=== PATIENT | male | born 1950 | race Caucasian/White ===

== ENCOUNTER → 2017-01-15 | Outpatient (CLI) | payer OTHER ==
[~2017-01-15] MED LIST: ACID CONTROL150 MG PO; ALBUTEROL17 GM INH; ALOE VESTA CLE118 ML TOP; ATORVASTATIN CA80 MG PO; ATROVENT NEB; B-121000 MC1 PO; BIOTENE MOIST44.3 ML; BUPROPION XL300 MG PO; BUSPIRONE HCL10 M1 PO; CALMOSEPTINE O3.5 GM TOP; DILTIAZEM 24HR240 M1 PO; ESCITALOPRAM OX20 MG PO; FERRO-TIME325 MG PO; FLOMAX0.4 M1 PO; GABAPENTIN600 MG PO; LASIX PO; MAG-OXIDE400 MG PO; METFORMIN HCL500 M1 PO; OXYCODONE HCL5 MG PO; STOOL SOFTENER250 MG PO; SYMBICORT 160/4.6 GM INH; TOPROL XL100 MG PO; WARFARIN SODIU7.5 M1 PO; WARFARIN SODIUM10 MG PO; ZINC OXIDE56.7 GM TOP
--- NOTE | ~2017-01-15 | CT95 ---
[facility] [place]. [facility] A Service of [facility] & [facility] RADIOLOGY TEXT RESULTS PATIENT: MUNDO ESPINAL LOCATION: [facility] : 52 UNIT #: [id number] AGE: [address]: Rey Herndon MD SEX: M ORDER DR: [id number] [address] [address] [id number] O MR#: [id number] Acc #: [id number] NAME: MUNDO ESPINAL : 1950 SEX: M STUDY DATE/TIME: 01/15/2017 12:44 UNIT: SCT ROOM: STUDY DESCRIPTION: CT Lower Ext Rt Wo Cont Attending Physician: Mervin Herndon M.D. Referring Physician: Mervin Herndon M.D. Ordering Physician: Mervin Herndon M.D. Primary Care Physician: No Primary Care Physician MEDICAL IMAGING REPORT This report is preliminary unless electronic signature is present. EXAM CT right lower leg and ankle. HISTORY 67-year-old male; fracture, November 2015. Had surgery at [facility], now with persistent pain, swelling. Patient underwent tibiotalocalcaneal fusion procedure with persistent pain. COMPARISON Foot and ankle films, 12/10/2016. TECHNIQUE Thin-section axial images were performed through the right lower leg and ankle with multiplanar reconstructed images reviewed at a work station. This CT exam was performed with one or more of the following radiation dose reduction techniques: automatic exposure control, adjustment of mA and/or kV according to patient size, and iterative reconstruction. FINDINGS Examination demonstrates a long retrograde intramedullary nail extending through the calcaneus, through the talus and into the distal and mid tibia. 2 proximal interlocking screws engage the tibial portion of the intramedullary nail, with no fracture or loosing of this instrumentation. In the distal tibia, there is considerable lucency about the intramedullary nail, which suggests abnormal motion. There is also extensive lucency within the talus, corresponding to the passage of the intramedullary nail, but considerable space surrounding the intramedullary nail and also within the calcaneus. This also implies abnormal motion and loosening and loss of fixation at the talus and calcaneus. There is fracturing of the inferiormost interlocking screw within the inferiormost portion of the intramedullary nail. The screw extending across the talus and engaging the intramedullary nail is angulated, and there is STS. [facility] A Service of [facility] RADIOLOGY TEXT RESULTS PATIENT: MUNDO ESPINAL LOCATION: [facility] : 52 UNIT #: [id number] AGE: [address]: Rey Herndon MD SEX: M ORDER DR: considerable lucency about the screw, also supporting abnormal motion and loss of fixation. No evidence of bony fusion across the ankle or subtalar joint. A long threaded screw traverses from the posterior calcaneus along the medial margin of the calcaneus, but only partially engages the medial cortex of the calcaneus, and does not engage the intramedullary nail. An extensive portion of the screw is within the soft tissues of the medial ankle. The inferiormost interlocking screw only partially engages the intramedullary nail. Extensive arthritic changes are noted at the midfoot, most prominent at the naviculocuneiform articulations and also at the calcaneocuboid joint. Sclerosis deformity and subchondral cystic change noted at the ankle joint could be secondary or represent preexisting arthrosis. Diffuse sclerosis and chronic-appearing periostitis in the distal tibia probably related to altered stress, though similar findings could be seen with chronic infection. Generalized soft tissue swelling and edema about the lower leg, foot, and ankle. There is thickening and decreased attenuation surrounding the distal tibialis anterior tendon along the anterior aspect of the lower leg, just above the ankle joint. This may reflect underlying tendinopathy or tenosynovitis. The remainder of the visualized ankle tendons are unremarkable. Arteriovascular calcifications noted. Mild generalized atrophy of the lower leg musculature, particularly the posterior compartment musculature. Focal fatty change within the soleus could represent a lipoma or focal atrophy. Extensive superficial varicosities noted. IMPRESSION 1. CT findings compatible with a failed tibiotalocalcaneal fusion procedure with loss of fixation of the talus and calcaneus with abnormal motion suspected about the intramedullary nail and about the distal interlocking screws, as detailed above. No fusion across the ankle or subtalar joint. 2. Chronic periosteal changes of the distal tibia may reflect chronic stress change and abnormal motion. 3. Moderately advanced arthritic changes within the midfoot at the calcaneocuboid joint and tarsometatarsal joints, and naviculocuneiform articulations. 4. Generalized soft tissue swelling and edema about the lower leg with predominantly posterior lower leg muscle atrophy. 5. Abnormal appearance of the distal tibialis anterior tendon could reflect tenosynovitis or tendinopathy, Dictated by... Katelyn Ann M.D. [facility] [place]. [facility] A Service of [facility] RADIOLOGY TEXT RESULTS PATIENT: MUNDO ESPINAL LOCATION: [facility] : 52 UNIT #: [id number] AGE: [address]: Rey Herndon MD SEX: M ORDER DR: THIS IS AN ELECTRONICALLY VERIFIED REPORT Katelyn Ann M.D. at 01/20/2017 9:29 AM Laura TD: 01/16/2017 14:31 JOB #: [id number] MEDICAL IMAGING REPORT Page 1 of 1
== END | disposition home or self-care (01) ==
LOC: SCT 12:22
DX: G89.18 Other acute postprocedural pain (principal); M96.89 Other intraoperative and postprocedural complications and disorders of the musculoskeletal system; M79.89 Other specified soft tissue disorders; R93.7 Abnormal findings on diagnostic imaging of other parts of musculoskeletal system
CPT/HCPCS: 73700

== ENCOUNTER → 2017-02-17 | Outpatient (CLI) | payer OTHER ==
--- NOTE | ~2017-02-17 | EKG ---
PATIENT: MUNDO ESPINAL UNIT #: [id number] Ventricular Rate: 46 BPM Atrial Rate: 46 BPM P-R Interval: 138 ms QRS Duration: 102 ms Q-T Interval: 534 ms QTC Calculation(Bezet): 467 ms P [place]: 51 degrees Calculated R [place]: 56 degrees Calculated T [place]: 11 degrees Diagnosis Line: Marked sinus bradycardia Diagnosis Line: Abnormal ECG Diagnosis Line: No previous ECGs available Diagnosis Line: Confirmed by ERNESTO AMAYA MD ([id number]) on 02/18/2017 Diagnosis Line: 12:06:49 AM INTERPRETING MD: MONIQUE LANGLEY
[2017-02-17 12:53] LABS: HEMATOCRIT 38.7 % (38.0-50.0); HEMOGLOBIN 12.8 gm/dL (13.0-16.0); MEAN CELL VOLUME 90.9 FL (83-96); MEAN PLATELET VOLUME 7.8 FL (6.5-11.5); RED BLOOD COUNT 4.26 X10e (3.90-5.60); WHITE BLOOD COUNT 5.5 X10e3 (4.0-10.5)
[2017-02-17 13:18] LABS: CALCIUM SERUM 9.3 mg/dL (8.4-10.2); CREATININE SERUM 2.3 mg/dL (0.6-1.4); GLOM FILT RATE Estimated 28.5 mL/min (>60); POTASSIUM 3.6 mmol/L (3.5-5.1)
== END | disposition home or self-care (01) ==
LOC: CAMB 09:11
PROVIDERS: Orthopaedic Surgery
DX: Z01.818 Encounter for other preprocedural examination (principal); S82.201A Unspecified fracture of shaft of right tibia, initial encounter for closed fracture
CPT/HCPCS: 36415; 80048; 85027; 87070; 93005